=== PATIENT | female | born 2000 | race Caucasian/White ===

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

== ENCOUNTER 2019-04-04 18:32 | Emergency (ER) | payer MEDICAID ==
[~2019-04-04] VITALS: Ht 167.6 cm; Wt 122.5 kg
[2019-04-04 18:39] VITALS: BP 152/63
[2019-04-04] MEDS ORDERED: IBUPROFEN 800 MG TAB PO ONE (23:15)
== END 2019-04-04 23:46 | disposition home or self-care (01) ==
LOC: ER 18:39
DX: M76.9 Unspecified enthesopathy, lower limb, excluding foot (principal); M25.562 Pain in left knee; M25.561 Pain in right knee; R22.43 Localized swelling, mass and lump, lower limb, bilateral

== ENCOUNTER 2020-05-01 20:34 | Emergency (ER) | payer MEDICAID ==
[~2020-05-01] VITALS: Ht 172.7 cm; Wt 136.1 kg
[2020-05-01 23:18] VITALS: BP 142/70
[2020-05-02 01:25] LABS: Urine Bacteria FEW /hpf (None Seen); Urine Blood Negative /uL (Negative); Urine Mucus MODERATE (None Seen); Urine WBC 3 /hpf (0 - 5)
== END 2020-05-02 02:52 | disposition home or self-care (01) ==
LOC: ER 20:46
DX: O21.9 Vomiting of pregnancy, unspecified (principal); O26.891 Other specified pregnancy related conditions, first trimester; R10.9 Unspecified abdominal pain; Z3A.01 Less than 8 weeks gestation of pregnancy
CPT/HCPCS: 36415; 81001; 84702